=== PATIENT | male | born 1950 | race Caucasian/White ===

== ENCOUNTER 2018-04-07 12:18 | Inpatient (IN) | payer MEDICARE ==
[2018-04-07 13:10] LABS: ADD MAN DIFF? NO
[2018-04-07] MEDS: SODIUM CHLORIDE 0.9% 1L BAG IV* (13:16)
[2018-04-07 13:19] LABS: WHITE BLOOD COUNT 16.3 10^3/ul (4.8-10.8)
[2018-04-07 13:19] LABS: ABNORMAL IP MESSAGE 1; BASOPHIL # 0.1 10^3/ul (0.0-0.1); BASOPHILS % 0.6 % (0.0-2.0); EOSINOPHILS # 0.1 10^3/ul (0.0-0.5); EOSINOPHILS % 0.7 % (0.0-7.0); HEMATOCRIT 40.5 % (42.0-52.0); HEMOGLOBIN 13.3 g/dl (14.0-18.0); LYMPHOCYTES # 1.9 10^3/ul (0.8-2.9); LYMPHOCYTES % 11.9 % (15.0-51.0); MEAN CORPUSCULAR HEMOGLOBIN 28.3 pg (29.0-33.0); MEAN CORPUSCULAR HGB CONC 32.8 g/dl (32.0-37.0); MEAN CORPUSCULAR VOLUME 86.2 fl (82.0-101.0); MONOCYTE # 1.6 10^3/ul (0.3-0.9); MONOCYTES % 9.5 % (0.0-11.0); NEUTROPHIL # 12.5 10^3/ul (1.6-7.5); NEUTROPHILS % 76.5 % (39.0-77.0); PLATELET COUNT 637 10^3/UL (140-415); POSITIVE DIFF @See below; RED CELL DISTRIBUTION WIDTH 13.2 % (11.5-14.5)
[2018-04-07] MEDS: ACETAMINOPHEN 325 MG TAB PO ×2 (13:21→20:18)
[2018-04-07] MEDS: VANCOMYCIN 1 GM (PMX) 250 ML IVPB (13:21)
[2018-04-07 13:36] LABS: INR 2.34; PROTIME 26.3 Sec (11.9-14.9); PT RATIO 2.1
[2018-04-07 13:40] LABS: ANION GAP 13 (5-13); BLOOD UREA NITROGEN 11 mg/dl (7-20); CALCIUM 9.1 mg/dl (8.4-10.2); CARBON DIOXIDE 33 mmol/L (21-31); CHLORIDE 91 mmol/L (97-110); CREATININE 1.12 mg/dl (0.61-1.24); Estimated GFR > 60 mL/min (>60); GLUCOSE 151 mg/dl (70-220); POTASSIUM 3.5 mmol/L (3.5-5.1); SODIUM 137 mmol/L (135-144)
[2018-04-07 13:55] LABS: TROPONIN-I < 0.012 ng/ml (0.000-0.120)
[2018-04-07] MEDS ORDERED: hydrALAzine 20 MG INJ IV (14:30)
[2018-04-07] MEDS ORDERED: morphine 2 MG INJ IV (14:30)
[2018-04-07] MEDS ORDERED: HYDROCODONE/APAP (5/325) TAB PO (14:30)
[2018-04-07] MEDS ORDERED: CYCLOBENZAPRINE 10 MG TAB PO (14:30)
[2018-04-07] MEDS ORDERED: LORAZEPAM 2 MG INJ IV (14:30)
[2018-04-07] MEDS ORDERED: DOCUSATE SODIUM 100 MG CAP PO (14:30)
[2018-04-07] MEDS ORDERED: NA PHOSPHATE/BIPHOS 133 ML ENEMA PR (14:30)
[2018-04-07] MEDS ORDERED: MAGNESIUM HYDROXIDE 30ML CUP PO (14:30)
[2018-04-07] MEDS ORDERED: ONDANSETRON 4 MG INJ IV ×2 (14:30→15:00)
[2018-04-07] MEDS ORDERED: VANCOMYCIN IV PER PHARMACY XX (14:30)
[2018-04-07] MEDS ORDERED: NITROGLYCERIN (SL) 0.4 MG TAB SL (14:30)
[2018-04-07] MEDS: TRIMETHOPRIM/SULFAMETHOX (DS) TAB PO ×2 (14:30→20:20)
[2018-04-07] MEDS ORDERED: NACL 0.9% 3 ML SYG IV (14:30)
[2018-04-07] MEDS ORDERED: ALBUTEROL/IPRATROPIUM (NEB) 3 ML AMP HHN (14:30)
[2018-04-07] MEDS ORDERED: ACETAMINOPHEN 325 MG TAB PO (15:00)
[2018-04-07 15:05] LABS: FREE T4 (FREE THYROXINE) 1.67 ng/dl (0.78-2.44)
[2018-04-07] MEDS: AZTREONAM 1 GM/NS (PMX) 50 ML IVPB ×3 (15:25→21:05)
[2018-04-07] MEDS: SOD CHLORIDE 0.9% 1,000 ML IV (18:25)
[2018-04-07] MEDS ORDERED: ZOLPIDEM 5 MG TAB PO (19:00)
[2018-04-07 19:01] LABS: LACTIC ACID 1.2 mmol/L (0.5-2.0)
[2018-04-07] MEDS ORDERED: HEPARIN 5,000 UNIT/0.5 ML VIAL (20:06)
[2018-04-07] MEDS: TAMSULOSIN (SR) 0.4 MG CAP PO (20:18)
[2018-04-07] MEDS: ATORVASTATIN 10 MG TAB PO (20:19)
[2018-04-07] MEDS: HEPARIN SODIUM 5,000 UNIT/ML VIAL SC (20:22)
[2018-04-07] MEDS: MYTESI PO (20:40)
[2018-04-08] MEDS: SOD CHLORIDE 0.9% 1,000 ML IV ×3 (00:24→21:36)
[2018-04-08] MEDS: PANTOPRAZOLE 40 MG INJ IV (05:11)
[2018-04-08 06:37] LABS: ADD MAN DIFF? NO
[2018-04-08 06:45] LABS: WHITE BLOOD COUNT 9.5 10^3/ul (4.8-10.8)
[2018-04-08 06:45] LABS: BASOPHIL # 0.1 10^3/ul (0.0-0.1); BASOPHILS % 1.2 % (0.0-2.0); EOSINOPHILS # 0.2 10^3/ul (0.0-0.5); EOSINOPHILS % 2.2 % (0.0-7.0); HEMATOCRIT 34.8 % (42.0-52.0); HEMOGLOBIN 11.2 g/dl (14.0-18.0); LYMPHOCYTES # 1.3 10^3/ul (0.8-2.9); LYMPHOCYTES % 13.4 % (15.0-51.0); MEAN CORPUSCULAR HEMOGLOBIN 27.8 pg (29.0-33.0); MEAN CORPUSCULAR HGB CONC 32.2 g/dl (32.0-37.0); MEAN CORPUSCULAR VOLUME 86.4 fl (82.0-101.0); MONOCYTE # 0.9 10^3/ul (0.3-0.9); MONOCYTES % 9.8 % (0.0-11.0); NEUTROPHIL # 6.9 10^3/ul (1.6-7.5); NEUTROPHILS % 72.7 % (39.0-77.0); PLATELET COUNT 531 10^3/UL (140-415); RED BLOOD COUNT 4.03 10^6/ul (4.70-6.10); RED CELL DISTRIBUTION WIDTH 13.4 % (11.5-14.5)
[2018-04-08 06:54] LABS: HEMOGLOBIN A1C 5.5 % (0-5.9)
[2018-04-08 07:08] LABS: ANION GAP 6 (5-13); BLOOD UREA NITROGEN 11 mg/dl (7-20); CALCIUM 8.2 mg/dl (8.4-10.2); CARBON DIOXIDE 29 mmol/L (21-31); CHLORIDE 103 mmol/L (97-110); CHOL/HDL RATIO 6.8 RATIO; CREATININE 0.83 mg/dl (0.61-1.24); Estimated GFR > 60 mL/min (>60); GLUCOSE 94 mg/dl (70-220); HDL CHOLESTEROL 17 mg/dl (30-78); LDL CHOLESTEROL,CALCULATED 73 mg/dl; MAGNESIUM 2.3 mg/dl (1.7-2.5); PHOSPHORUS 3.8 mg/dl (2.5-4.9); POTASSIUM 3.2 mmol/L (3.5-5.1); SODIUM 138 mmol/L (135-144); TRIGLYCERIDES 128 mg/dl (0-149)
[2018-04-08 07:08] LABS: CHOLESTEROL 116 mg/dl (100-200)
[2018-04-08] MEDS ORDERED: HEPARIN 5,000 UNIT/0.5 ML VIAL ×2 (08:34→21:17)
[2018-04-08] MEDS: VITAMIN B COMPLEX/VIT C CAP PO (08:38)
[2018-04-08] MEDS: FLUOXETINE 20 MG CAP PO (08:39)
[2018-04-08] MEDS: MULTIVITAMINS THERAPEUTIC TAB PO (08:39)
[2018-04-08] MEDS: HEPARIN SODIUM 5,000 UNIT/ML VIAL SC ×2 (08:41→21:35)
[2018-04-08] MEDS: MYTESI PO ×2 (09:00→21:31)
[2018-04-08] MEDS: BIKTARVY PO (09:00)
[2018-04-08 09:34] LABS: ADD UMIC NO; UR ASCORBIC ACID NEGATIVE (NEGATIVE); UR BACTERIA FEW /HPF (NONE SEEN); UR BILIRUBIN (Dip) NEGATIVE (NEGATIVE); UR BLOOD (Dip) NEGATIVE (NEGATIVE); UR CLARITY SLIGHTLY CLOUDY (CLEAR); UR COLOR AMBER (YELLOW); UR GLUCOSE (Dip) NEGATIVE (NEGATIVE); UR KETONES (Dip) NEGATIVE (NEGATIVE); UR LEUKOCYTE ESTERASE (Dip) NEGATIVE Leu/ul (NEGATIVE); UR MUCUS FEW /HPF (NONE SEEN); UR NITRITE (Dip) NEGATIVE (NEGATIVE); UR RBC 2 /HPF (0-5); UR SPECIFIC GRAVITY (Dip) 1.017 (1.003-1.030); UR SQUAMOUS EPITHELIAL CELL FEW /HPF (FEW); UR TOTAL PROTEIN (Dip) NEGATIVE (NEGATIVE); UR UROBILINOGEN (Dip) 2+ mg/dL (NEGATIVE); UR WBC 3 /HPF (0-5)
[2018-04-08] MEDS: VANCOMYCIN 1 GM 250 ML IVPB (12:24)
[2018-04-08] MEDS: AZTREONAM 1 GM/NS (PMX) 50 ML IVPB ×2 (14:37→21:31)
[2018-04-08] MEDS: POTASSIUM CHLORIDE (SR) 20 MEQ TAB PO (14:38)
[2018-04-08 17:11] LABS: LYMPHOCYTE - % CD4 (HELPER) 15 % (30-61); LYMPHOCYTE - %CD8 (SUPPRESSOR) 63 % (12-42); LYMPHOCYTE - ABSOLUTE 2419 cells/uL (850-3900); LYMPHOCYTE - ABSOLUTE CD4 354 cells/uL (490-1740); LYMPHOCYTE - ABSOLUTE CD8 1514 cells/uL (180-1170); LYMPHOCYTE - CD4/CD8 RATIO 0.23 (0.86-5.00)
[2018-04-08] MEDS: TAMSULOSIN (SR) 0.4 MG CAP PO (21:31)
[2018-04-08] MEDS: ATORVASTATIN 10 MG TAB PO (21:31)
[2018-04-08] MEDS: LEVOFLOXACIN 750MG/D5W (PMX) 150 ML IVPB (21:31)
[2018-04-09] MEDS: PANTOPRAZOLE 40 MG INJ IV (05:48)
[2018-04-09] MEDS: SOD CHLORIDE 0.9% 1,000 ML IV (06:24)
[2018-04-09 06:55] LABS: ADD MAN DIFF? NO
[2018-04-09 06:57] LABS: BASOPHIL # 0.1 10^3/ul (0.0-0.1); BASOPHILS % 0.7 % (0.0-2.0); EOSINOPHILS # 0.2 10^3/ul (0.0-0.5); EOSINOPHILS % 1.4 % (0.0-7.0); HEMATOCRIT 33.8 % (42.0-52.0); HEMOGLOBIN 11.1 g/dl (14.0-18.0); LYMPHOCYTES # 1.5 10^3/ul (0.8-2.9); LYMPHOCYTES % 12.2 % (15.0-51.0); MEAN CORPUSCULAR HEMOGLOBIN 27.9 pg (29.0-33.0); MEAN CORPUSCULAR HGB CONC 32.8 g/dl (32.0-37.0); MEAN CORPUSCULAR VOLUME 84.9 fl (82.0-101.0); MONOCYTE # 1.3 10^3/ul (0.3-0.9); MONOCYTES % 10.7 % (0.0-11.0); NEUTROPHILS % 74.2 % (39.0-77.0); PLATELET COUNT 544 10^3/UL (140-415); RED BLOOD COUNT 3.98 10^6/ul (4.70-6.10); RED CELL DISTRIBUTION WIDTH 13.3 % (11.5-14.5)
[2018-04-09 06:57] LABS: WHITE BLOOD COUNT 12.1 10^3/ul (4.8-10.8)
[2018-04-09 07:42] LABS: ANION GAP 8 (5-13); BLOOD UREA NITROGEN 9 mg/dl (7-20); CALCIUM 8.2 mg/dl (8.4-10.2); CARBON DIOXIDE 25 mmol/L (21-31); CHLORIDE 103 mmol/L (97-110); CREATININE 0.89 mg/dl (0.61-1.24); Estimated GFR > 60 mL/min (>60); GLUCOSE 92 mg/dl (70-220); POTASSIUM 3.7 mmol/L (3.5-5.1); SODIUM 136 mmol/L (135-144)
[2018-04-09] MEDS ORDERED: HEPARIN 5,000 UNIT/0.5 ML VIAL (10:09)
[2018-04-09] MEDS: AZTREONAM 1 GM/NS (PMX) 50 ML IVPB (10:15)
[2018-04-09] MEDS: MULTIVITAMINS THERAPEUTIC TAB PO (10:16)
[2018-04-09] MEDS: VITAMIN B COMPLEX/VIT C CAP PO (10:17)
[2018-04-09] MEDS: FLUOXETINE 20 MG CAP PO (10:17)
[2018-04-09] MEDS: MYTESI PO (10:17)
[2018-04-09] MEDS: HEPARIN SODIUM 5,000 UNIT/ML VIAL SC (10:20)
[2018-04-09] MEDS: BIKTARVY PO (10:24)
[2018-04-09] MEDS ORDERED: LEVOFLOXACIN 500 MG TAB NGT (17:00)
== END 2018-04-09 17:00 | disposition home or self-care (01) | DRG 975 ==
LOC: E/R 12:18 → 5EC 14:33
DX: J18.9 Pneumonia, unspecified organism (principal); B20 Human immunodeficiency virus [HIV] disease; R64 Cachexia; Z68.1 Body mass index [BMI] 19.9 or less, adult; J43.9 Emphysema, unspecified; F32.9 Major depressive disorder, single episode, unspecified; F10.21 Alcohol dependence, in remission; Z88.0 Allergy status to penicillin; Z87.891 Personal history of nicotine dependence; Z91.81 History of falling
CPT/HCPCS: 36415; 70450; 71045; 80048; 80061; 81001; 81003; 83036; 83605; 83735; 84100; 84439; 84443; 84484; 85025; 85610; 85730; 86360; 87040; 87045; 87086; 87400; 87536; 90686; 92610; 93005; 93306; 96374; 99291-25

== ENCOUNTER 2018-05-02 10:50 | Emergency (ER) | payer MEDICARE ==
[2018-05-02] MEDS: IBUPROFEN 200 MG TAB PO (11:12)
[2018-05-02] MEDS: HYDROCODONE/APAP (5/325) TAB PO (11:12)
== END 2018-05-02 14:44 | disposition home or self-care (01) ==
LOC: FTE 10:50
DX: J18.1 Lobar pneumonia, unspecified organism (principal); S22.42XA Multiple fractures of ribs, left side, initial encounter for closed fracture; W18.09XA Striking against other object with subsequent fall, initial encounter; Y92.9 Unspecified place or not applicable; Z21 Asymptomatic human immunodeficiency virus [HIV] infection status; Z87.891 Personal history of nicotine dependence
CPT/HCPCS: 71045; 71100; 71250; 99284-25